=== PATIENT | female | born 1980 | race African-American/Black ===

== ENCOUNTER 2020-06-17 09:44 | Inpatient (IN) | payer BC ==
[~2020-06-17] VITALS: Ht 175.3 cm; Wt 70.3 kg
[2020-06-17] MEDS ORDERED: PERCOCET 5-3251 EACH ORAL (09:55)
[2020-06-17] MEDS ORDERED: ZOFRAN4 M3 ORAL (09:55)
[2020-06-17] MEDS ORDERED: MIRALAX17 G2 ORAL (09:55)
[2020-06-17] MEDS ORDERED: TRAMADOL HCL50 MG ORAL (09:55)
[2020-06-17] MEDS ORDERED: AUGMENTIN 875-1 EAC1 ORAL (09:55)
[2020-06-17] MEDS ORDERED: Omnipaque-300 100ml vial INJ PRN (10:00)
--- NOTE | 2020-06-17 10:15 | Emergency Room Report ---
History of Present Illness General Chief Complaint: Abdominal Pain Source: Patient Present Illness HPI Patient is a 40-year-old female presents for increased abdominal pain and distention. Reports having difficulty with using the bathroom and no bowel movements since procedure. Patient had uterine artery embolization on Sunday. Denies any fever. Had not been having any vomiting. Had been taking magnesium citrate without any improvement. Patient had not been having any fever. Denies any severe pain at this time. Had procedure performed by Dr. 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 COVID-19 Screening: Negative COVID-19 COVID-19 Testing Source: nasal Patient History Past Medical History: see triage record Now: No Reviewed Nursing Documentation: PMH: Agreed; PSxH: Agreed Nursing Documentation-PMH Past Medical History: No History, Except For Hx Gastrointestinal Problems: No - uterine fibroid Review of Systems All Other Systems: negative except mentioned in HPI Physical Exam Vital Signs Date Time Temp Pulse Resp B/P (MAP) Pulse Ox O2 Delivery O2 Flow Rate FiO2 06/17/20 09:47 98.6 81 17 135/85 (102) 99 Room Air Sp02 EP Interpretation: reviewed, normal General Appearance: normal inspection, well appearing, no apparent distress, alert, GCS 15 Head: atraumatic ENT: normal ENT inspection, hearing grossly normal, normal voice Neck: normal inspection, full range of motion, supple, no bony tend Respiratory: normal inspection, lungs clear, normal breath sounds, no respiratory distress, no retraction, no wheezing Cardiovascular #1: regular rate, rhythm, no edema Gastrointestinal: normal inspection, normal bowel sounds, non tender, soft, no guarding, no hernia, other - Large mass to the abdomen consistent uterine fibroid. Genitourinary: no CVA tenderness Musculoskeletal: normal inspection, back normal, normal range of motion Neurologic: alert, motor strength/tone normal, bicycle racer III-XII nml as tested, oriented x3, responsive, speech normal, normal inspection Psychiatric: normal inspection, judgement/insight normal, mood/affect normal Medical Decision Making Diagnostic Impression: Primary Impression: Status post embolization of uterine artery Additional Impressions: Coagulopathy Abdominal pain ER Course Patient presents for abdominal pain. Differential diagnosis include was not limited to fibroids, fecal impaction, bowel obstruction among others. Because of complexity of patient's case laboratory tests and imaging studies were orde red. Patient was discussed with and apparently patient had increased difficulty with having bowel movement. Patient denies any fever suggesting any infection but she had been on Augmentin. Patient had been taking Percocet for pain which may be contributing to the patient's constipation.Patient's laboratory testing showed massive uterus with multiple fibroids. See radiology report for full details. Patient was discussed with Dr. Jeong who agreed with admission. Labs Test 06/17/20 10:00 White Blood Count 7.2 K/UL (4.8-10.8) Red Blood Count 4.38 M/UL (4.20-5.40) Hemoglobin 10.2 G/DL (12.0-16.0) Hematocrit 33.0 % (37.0-47.0) Mean Corpuscular Volume 75 FL (80-99) Mean Corpuscular Hemoglobin 23.3 PG (27.0-31.0) Mean Corpuscular Hemoglobin Concent 30.8 G/DL (32.0-36.0) Red Cell Distribution Width 14.8 % (11.6-14.8) Platelet Count 273 K/UL (150-450) Mean Platelet Volume 7.9 FL (6.5-10.1) Neutrophils (%) (Auto) 81.8 % (45.0-75.0) Lymphocytes (%) (Auto) 8.6 % (20.0-45.0) Monocytes (%) (Auto) 7.7 % (1.0-10.0) Eosinophils (%) (Auto) 0.6 % (0.0-3.0) Basophils (%) (Auto) 1.3 % (0.0-2.0) Prothrombin Time 11.9 SEC (9.30-11.50) Prothromb Time International Ratio 1.1 (0.9-1.1) Activated Partial Thromboplast Time 66 SEC (23-33) Urine Color Pale yellow Urine Appearance Clear Urine pH 7 (4.5-8.0) Urine Specific [place] 1.005 (1.005-1.035) Urine Protein Negative (NEGATIVE) Urine Glucose (UA) Negative (NEGATIVE) Urine Ketones Negative (NEGATIVE) Urine Blood Negative (NEGATIVE) Urine Nitrite Negative (NEGATIVE) Urine Bilirubin Negative (NEGATIVE) Urine Urobilinogen Normal MG/DL (0.0-1.0) Urine Leukocyte Esterase Negative (NEGATIVE) Sodium Level 140 MMOL/L (136-145) Potassium Level 3.7 MMOL/L (3.5-5.1) Chloride Level 102 MMOL/L (98-107) Carbon Dioxide Level 31 MMOL/L (21-32) Anion Gap 7 mmol/L (5-15) Blood Urea Nitrogen 6 mg/dL (7-18) Creatinine 0.7 MG/DL (0.55-1.30) Estimat Glomerular Filtration Rate > 60 mL/min (>60) Glucose Level 101 MG/DL (74-106) Calcium Level 8.9 MG/DL (8.5-10.1) Total Bilirubin 0.4 MG/DL (0.2-1.0) Aspartate Amino Transf (AST/SGOT) 23 U/L (15-37) Alanine Aminotransferase (ALT/SGPT) 18 U/L (12-78) Alkaline Phosphatase 59 U/L (46-116) Total Protein 8.3 G/DL (6.4-8.2) Albumin 3.9 G/DL (3.4-5.0) Globulin 4.4 g/dL Albumin/Globulin Ratio 0.9 (1.0-2.7) Lipase 95 U/L (73-393) Last Vital Signs Date Time Temp Pulse Resp B/P (MAP) Pulse Ox O2 Delivery O2 Flow Rate FiO2 06/17/20 09:47 98.6 81 17 135/85 (102) 99 Room Air Status: improved Disposition: ADMITTED INPATIENT Condition: Stable Raudel Prabhakar MD Jun 17, 2020 10:15
[2020-06-17 10:20] LABS: APPEARANCE,URINE CLEAR; BILIRUBIN, URINE NEGATIVE (NEGATIVE); COLOR,URINE PALE YELLOW; GLUCOSE, URINE (UA) NEGATIVE (NEGATIVE); KETONES,URINE NEGATIVE (NEGATIVE); LEUKOCYTE ESTERASE ,URINE NEGATIVE (NEGATIVE); NITRITE,URINE NEGATIVE (NEGATIVE); PH,URINE 7 (4.5-8.0); PROTEIN,URINE NEGATIVE (NEGATIVE); UROBILINOGEN,URINE NORMAL MG/DL (0.0-1.0)
--- NOTE | 2020-06-17 10:24 | NUR ---
Patient presents to ER for increased abdominal pain and distention. She had a uterine artery embolization procedure by Dr Grimes on Sunday last and have since had difficulty using the bathroom with no bowel movements since then. She reported taking Magnesium citrate without success.
[2020-06-17 10:31] LABS: ANION GAP 7 mmol/L (5-15); BLOOD UREA NITROGEN 6 mg/dL (7-18); CALCIUM 8.9 MG/DL (8.5-10.1); CARBON DIOXIDE 31 MMOL/L (21-32); CHLORIDE 102 MMOL/L (98-107); CREATININE 0.7 MG/DL (0.55-1.30); POTASSIUM 3.7 MMOL/L (3.5-5.1); SODIUM 140 MMOL/L (136-145)
[2020-06-17 10:36] LABS: ALANINE AMINOTRANSFERASE 18 U/L (12-78); ALBUMIN 3.9 G/DL (3.4-5.0); ALBUMIN/GLOBULIN RATIO 0.9 (1.0-2.7); ALKALINE PHOSPHATASE 59 U/L (46-116); ASPARTATE AMINO TRANSFERASE 23 U/L (15-37); BILIRUBIN,TOTAL 0.4 MG/DL (0.2-1.0)
[2020-06-17 10:44] LABS: BASOPHILS % (AUTO) 1.3 % (0.0-2.0); EOSINOPHILS % (AUTO) 0.6 % (0.0-3.0); HEMOGLOBIN 10.2 G/DL (12.0-16.0); LYMPHOCYTES % (AUTO) 8.6 % (20.0-45.0); MEAN CORPUSCULAR VOLUME 75 FL (80-99); MONOCYTES % (AUTO) 7.7 % (1.0-10.0); NEUTROPHILS % (AUTO) 81.8 % (45.0-75.0); PLATELET COUNT 273 K/UL (150-450); RED BLOOD COUNT 4.38 M/UL (4.20-5.40); RED CELL DISTRIBUTION WIDTH 14.8 % (11.6-14.8); WHITE BLOOD COUNT 7.2 K/UL (4.8-10.8)
[2020-06-17 11:19] LABS: INR 1.1 (0.9-1.1)
--- NOTE | 2020-06-17 11:57 | Diagnostic Imaging Report ---
EXAM: CT CT Abdomen Pelvis w/Contrast INDICATION: Reason For Exam: ABD PAIN. COMPARISON: None TECHNIQUE: Axial images were obtained through the abdomen pelvis with intravenous contrast. Sagittal and coronal reformats are generated. All CT scans at this facility are performed using dose modulation techniques as appropriate to a performed exam including the following: automated exposure control with adjustment of the mA and/or kV according to patient size. RADIATION DOSE: CTDIvol: 4.6 mGy DLP: 266.2 mGy-cm Dose information generated by the CT scanner is available in PACS. FINDINGS: The lung bases are clear. The liver and spleen are homogeneous. Gallbladder is without sludge or stone and there is no wall thickening. The pancreas is unremarkable. Adrenals are normal in morphology. There is mild right hydronephrosis. Small bowel loops are nondistended. Increased lucency noted throughout the colon. The appendix is not visualized. The dominant abnormality is huge multilobulated mass or masses extending from the pelvis into the upper abdomen. There is a right-sided dominant cystic component which measures at least 17.2 x 14 x 15 cm. Multiple smaller lobulations, some with apparent enhancement noted in the lower abdomen and pelvis. If this is all one complex mass, then it easily spans over 31 cm. There are some scattered free fluid noted. There is no free air. No pathologic adenopathy demonstrated. Urinary bladder appears unremarkable. Small fatty umbilical hernia noted. IMPRESSION: HUGE MULTILOBULATED, MULTILOCULATED MASS VERSUS MULTIPLE ADJACENT MASSES IDENTIFIED EXTENDING FROM THE PELVIS UP INTO THE UPPER ABDOMEN. THIS IS MOST LIKELY OF OVARIAN ORIGIN. RECOMMEND GYNECOLOGIC OSSIFICATION. MILD RIGHT HYDRONEPHROSIS LIKELY SECONDARY TO DISTAL COMPRESSION.
[2020-06-17] MEDS ORDERED: Ketorolac 30mg Inj IV ONE (12:00)
[2020-06-17] MEDS ORDERED: Ketorolac 30mg Inj ONE (12:00)
--- NOTE | 2020-06-17 12:30 | NUR ---
NURSE NOTES: Pt came up to unit in stable condition and w/all belongings accounted for. Pt A&Ox4, VSS, and in no apparent distress. IV site intact/asymptomatic and skin intact. Will contact MD for admission orders.
[2020-06-17 13:30] VITALS: BP 126/85
[2020-06-17] MEDS ORDERED: Miralax 17gm pkt ORAL PRN (14:00)
[2020-06-17] MEDS ORDERED: Milk of Magnesia 30ml Ud ORAL PRN ×2 (14:00→16:30)
[2020-06-17] MEDS ORDERED: traMADol 50mg tab ORAL PRN (15:30)
[2020-06-17] MEDS: oxyCODONE HCL/Acetaminophen 5/325mg ORAL PRN ×2 (15:51→20:13)
[2020-06-17] MEDS: D5 1/2NS w/KCl 20mEq 1,000 ML IV SCH (15:51)
[2020-06-17 16:00] VITALS: BP 139/93
--- NOTE | 2020-06-17 16:21 | History & Physical ---
History and Physical History & Physicial HISTORY AND PHYSICAL EXAM CC: Abd pain HPI: 40F h/o UF admitted POD2 S/P UFE with abd pain (BLQ crampy) + N no V no FC no CP no SOB. PMH: UF PSH: UFE ALL: NKDA Active Scripts Medications Dose Route/Sig Max Daily Dose Days Date Category Augmentin 875-125 Tablet* (Amoxicillin/Clavulanate Potassium) 1 Each Tablet 1 Tab ORAL TWICE A DAY 06/17/20 Reported Percocet 5-325 Mg Tablet* (Oxycodone/Acetaminophen) 1 Each Tablet 1 Tab ORAL Q4H PRN 06/17/20 Reported Zofran* (Ondansetron HCl) 4 Mg Tablet 4 Mg ORAL Q6H PRN 06/17/20 Reported Ultram* (Tramadol HCl) 50 Mg Tablet 50 Mg ORAL Q6H PRN 06/17/20 Reported Miralax* (Polyethylene Glycol) 17 Gm Powd.pack 17 Gm ORAL DAILY 06/17/20 Reported SHx: No T/E/D use FHx: N/C ROS: Negative other than HPI PE: Last 24 Hour Vital Signs Date Time Temp Pulse Resp B/P (MAP) Pulse Ox O2 Delivery O2 Flow Rate FiO2 06/17/20 12:02 98.6 17 135/85 99 Room Air 06/17/20 09:47 98.6 81 17 135/85 (102) 99 Room Air NAD, AAOX3 NC/AT, OPC c MMM Supple s LAD or JVD CTA RRR S, mild dist, NT, NABS No C/C/E 06/17/20 CT AP: HUGE MULTILOBULATED, MULTILOCULATED MASS VERSUS MULTIPLE ADJACENT MASSES IDENTIFIED EXTENDING FROM THE PELVIS UP INTO THE UPPER ABDOMEN. THIS IS MOST LIKELY OF OVARIAN ORIGIN. RECOMMEND GYNECOLOGIC OSSIFICATION. MILD RIGHT HYDRONEPHROSIS LIKELY SECONDARY TO DISTAL COMPRESSION. Laboratory Tests Test 06/17/20 10:00 White Blood Count 7.2 K/UL (4.8-10.8) Red Blood Count 4.38 M/UL (4.20-5.40) Hemoglobin 10.2 G/DL (12.0-16.0) L Hematocrit 33.0 % (37.0-47.0) L Mean Corpuscular Volume 75 FL (80-99) L Mean Corpuscular Hemoglobin 23.3 PG (27.0-31.0) L Mean Corpuscular Hemoglobin Concent 30.8 G/DL (32.0-36.0) L Red Cell Distribution Width 14.8 % (11.6-14.8) Platelet Count 273 K/UL (150-450) Mean Platelet Volume 7.9 FL (6.5-10.1) Neutrophils (%) (Auto) 81.8 % (45.0-75.0) H Lymphocytes (%) (Auto) 8.6 % (20.0-45.0) L Monocytes (%) (Auto) 7.7 % (1.0-10.0) Eosinophils (%) (Auto) 0.6 % (0.0-3.0) Basophils (%) (Auto) 1.3 % (0.0-2.0) Prothrombin Time 11.9 SEC (9.30-11.50) H Prothromb Time International Ratio 1.1 (0.9-1.1) Activated Partial Thromboplast Time 66 SEC (23-33) H Urine Color Pale yellow Urine Appearance Clear Urine pH 7 (4.5-8.0) Urine Specific [place] 1.005 (1.005-1.035) Urine Protein Negative (NEGATIVE) Urine Glucose (UA) Negative (NEGATIVE) Urine Ketones Negative (NEGATIVE) Urine Blood Negative (NEGATIVE) Urine Nitrite Negative (NEGATIVE) Urine Bilirubin Negative (NEGATIVE) Urine Urobilinogen Normal MG/DL (0.0-1.0) Urine Leukocyte Esterase Negative (NEGATIVE) Sodium Level 140 MMOL/L (136-145) Potassium Level 3.7 MMOL/L (3.5-5.1) Chloride Level 102 MMOL/L (98-107) Carbon Dioxide Level 31 MMOL/L (21-32) Anion Gap 7 mmol/L (5-15) Blood Urea Nitrogen 6 mg/dL (7-18) L Creatinine 0.7 MG/DL (0.55-1.30) Estimat Glomerular Filtration Rate > 60 mL/min (>60) Glucose Level 101 MG/DL (74-106) Calcium Level 8.9 MG/DL (8.5-10.1) Total Bilirubin 0.4 MG/DL (0.2-1.0) Aspartate Amino Transf (AST/SGOT) 23 U/L (15-37) Alanine Aminotransferase (ALT/SGPT) 18 U/L (12-78) Alkaline Phosphatase 59 U/L (46-116) Total Protein 8.3 G/DL (6.4-8.2) H Albumin 3.9 G/DL (3.4-5.0) Globulin 4.4 g/dL Albumin/Globulin Ratio 0.9 (1.0-2.7) L Lipase 95 U/L (73-393) ASSESSMENT/PROBLEM LIST: * UF S/P UFE 06/15/20 (Dr. Farmer) * Post-operative pain * Constipation * Anemia * Mild hydronephrosis 2/2 compression from fibroids PLAN: * Pain control/supportive care * Bowel regimen * IS * OOB * Denise-operative Abx * mIVF * CLD, ADAT * DVT Px: SCD's * SODA DISPENSER eval * Dispo planning: home once pain adequately controlled and bowel function returned * Nathaniel Pena MD Jun 17, 2020 16:21
[2020-06-17] MEDS: Morphine Sulfate 2mg/ml Inj(IV/IM USE ONLY) IVP PRN (17:17)
[2020-06-17] MEDS: Docusate 250mg cap ORAL SCH (17:17)
--- NOTE | 2020-06-17 17:29 | General Surgery Progress Note ---
General Surgery-Progress Note Subjective Day of Surgery: june 15 Procedure Performed uterine fibroid embolization Symptoms: improved, tolerating diet, voiding well, passing flatus, pain decreased Objective Last 24 Hour Vital Signs Date Time Temp Pulse Resp B/P (MAP) Pulse Ox O2 Delivery O2 Flow Rate FiO2 06/17/20 12:02 98.6 17 135/85 99 Room Air 06/17/20 09:47 98.6 81 17 135/85 (102) 99 Room Air Dressing: dry Wound: clean, dry Drains: hemovac Cardiovascular: RSR Respiratory: clear Abdomen: soft, flat, tenderness, present bowel sounds Extremities: no edema, no tenderness, no cyanosis Laboratory Tests Test 06/17/20 10:00 White Blood Count 7.2 K/UL (4.8-10.8) Red Blood Count 4.38 M/UL (4.20-5.40) Hemoglobin 10.2 G/DL (12.0-16.0) L Hematocrit 33.0 % (37.0-47.0) L Mean Corpuscular Volume 75 FL (80-99) L Mean Corpuscular Hemoglobin 23.3 PG (27.0-31.0) L Mean Corpuscular Hemoglobin Concent 30.8 G/DL (32.0-36.0) L Red Cell Distribution Width 14.8 % (11.6-14.8) Platelet Count 273 K/UL (150-450) Mean Platelet Volume 7.9 FL (6.5-10.1) Neutrophils (%) (Auto) 81.8 % (45.0-75.0) H Lymphocytes (%) (Auto) 8.6 % (20.0-45.0) L Monocytes (%) (Auto) 7.7 % (1.0-10.0) Eosinophils (%) (Auto) 0.6 % (0.0-3.0) Basophils (%) (Auto) 1.3 % (0.0-2.0) Prothrombin Time 11.9 SEC (9.30-11.50) H Prothromb Time International Ratio 1.1 (0.9-1.1) Activated Partial Thromboplast Time 66 SEC (23-33) H Urine Color Pale yellow Urine Appearance Clear Urine pH 7 (4.5-8.0) Urine Specific [place] 1.005 (1.005-1.035) Urine Protein Negative (NEGATIVE) Urine Glucose (UA) Negative (NEGATIVE) Urine Ketones Negative (NEGATIVE) Urine Blood Negative (NEGATIVE) Urine Nitrite Negative (NEGATIVE) Urine Bilirubin Negative (NEGATIVE) Urine Urobilinogen Normal MG/DL (0.0-1.0) Urine Leukocyte Esterase Negative (NEGATIVE) Sodium Level 140 MMOL/L (136-145) Potassium Level 3.7 MMOL/L (3.5-5.1) Chloride Level 102 MMOL/L (98-107) Carbon Dioxide Level 31 MMOL/L (21-32) Anion Gap 7 mmol/L (5-15) Blood Urea Nitrogen 6 mg/dL (7-18) L Creatinine 0.7 MG/DL (0.55-1.30) Estimat Glomerular Filtration Rate > 60 mL/min (>60) Glucose Level 101 MG/DL (74-106) Calcium Level 8.9 MG/DL (8.5-10.1) Total Bilirubin 0.4 MG/DL (0.2-1.0) Aspartate Amino Transf (AST/SGOT) 23 U/L (15-37) Alanine Aminotransferase (ALT/SGPT) 18 U/L (12-78) Alkaline Phosphatase 59 U/L (46-116) Total Protein 8.3 G/DL (6.4-8.2) H Albumin 3.9 G/DL (3.4-5.0) Globulin 4.4 g/dL Albumin/Globulin Ratio 0.9 (1.0-2.7) L Lipase 95 U/L (73-393) Imaging no acute findings, much stool in colon Plan Additional Comments pain control, laxatives, iv iron. Álvaro Farmer MD Jun 17, 2020 17:29
--- NOTE | 2020-06-17 18:30 | NUR ---
NURSE NOTES: Performed tap water enema; pt tolerated well. Informed pt to notify me once she has BM; pt verbalized understanding. Will continue to monitor.
--- NOTE | 2020-06-17 19:10 | NUR ---
NURSE NOTES: Received report from DAPHNIE Awan. Pt is in bed A&Ox4, call light within reach, bed locked and in lowest position. Pt is having episodes of pain being treated with pain medication. IVF infusing well. Will continue to monitor.
[2020-06-17 20:00] VITALS: BP 131/73
--- NOTE | 2020-06-17 20:00 | NUR ---
NURSE HAND-OFF: Important Events on Shift: Pt received tap water enema at end of shift; pt yet to have BM. Patient Status: Stable Diet: Clear liquids Pending Orders: None Pending Results/Labs: None Pending MD notification: None Latest Vital Signs: Temperature 98.8 , Pulse 77 , B/P 139 /93 , Respiratory Rate 19 , O2 SAT 100 , Room Air, O2 Flow Rate . Vital Sign Comment: Stable Latest Gilman Fall Score: 35 Fall Risk: Medium Risk Safety Measures: Call light Within Reach, Bed Alarm , Side Rails Side Rails x2, Bed position Low and Locked. Fall Precautions: Report given to
[2020-06-17] MEDS: Iron Sucrose 100 MG in NS 55 ML IVPB SCH (20:12)
[2020-06-17] MEDS: Augmentin 875mg Tab ORAL SCH (20:13)
[2020-06-18] VITALS: BP 123/84
[2020-06-18] MEDS: D5 1/2NS w/KCl 20mEq 1,000 ML IV SCH ×3 (00:07→21:00)
[2020-06-18] MEDS: Morphine Sulfate 2mg/ml Inj(IV/IM USE ONLY) IVP PRN (00:08)
[2020-06-18] MEDS: oxyCODONE HCL/Acetaminophen 5/325mg ORAL PRN ×5 (02:10→20:19)
[2020-06-18 04:00] VITALS: BP 134/75
[2020-06-18 07:10] LABS: BASOPHILS % (AUTO) 0.5 % (0.0-2.0); EOSINOPHILS % (AUTO) 0.3 % (0.0-3.0); HEMATOCRIT 32.9 % (37.0-47.0); HEMOGLOBIN 9.6 G/DL (12.0-16.0); LYMPHOCYTES % (AUTO) 7.9 % (20.0-45.0); MEAN CORPUSCULAR VOLUME 77 FL (80-99); MONOCYTES % (AUTO) 9.9 % (1.0-10.0); NEUTROPHILS % (AUTO) 81.4 % (45.0-75.0); PLATELET COUNT 233 K/UL (150-450); RED BLOOD COUNT 4.26 M/UL (4.20-5.40); RED CELL DISTRIBUTION WIDTH 13.4 % (11.6-14.8); WHITE BLOOD COUNT 7.3 K/UL (4.8-10.8)
--- NOTE | 2020-06-18 07:10 | NUR ---
NURSE HAND-OFF: Important Events on Shift: Pain management, prune juice given still no BM Patient Status: Calm Diet: clear liquid Pending Orders: Pending Results/Labs: Pending MD notification: Latest Vital Signs: Temperature 99.1 , Pulse 89 , B/P 134 /75 , Respiratory Rate 18 , O2 SAT 99 , Room Air, O2 Flow Rate . Vital Sign Comment: VSS Latest Gilman Fall Score: 35 Fall Risk: Medium Risk Safety Measures: Call light Within Reach, Bed Alarm , Side Rails Side Rails x2, Bed position Low and Locked. Fall Precautions: Yellow Socks Patient Fall Education Report given to DAPHNIE Momin.
--- NOTE | 2020-06-18 07:22 | NUR ---
NURSE NOTES: Handoff received from Serjio ELLER. Patient is awake and alert, no signs of acute distress noted, breathing is even and unlabored on room air. Left AC 20g is intact and running IVF as ordered. Patient is requesting heat pad for abdominal pain and reporting no bowel movement for 3 days. Bed is low and locked, side rails up x2, call light is within reach. Will continue to monitor.
[2020-06-18 07:24] LABS: ANION GAP 5 mmol/L (5-15); BLOOD UREA NITROGEN 4 mg/dL (7-18); CALCIUM 8.4 MG/DL (8.5-10.1); CARBON DIOXIDE 29 MMOL/L (21-32); CHLORIDE 102 MMOL/L (98-107); CREATININE 0.7 MG/DL (0.55-1.30); SODIUM 136 MMOL/L (136-145)
[2020-06-18 08:00] VITALS: BP 136/86
[2020-06-18] MEDS: Augmentin 875mg Tab ORAL SCH ×2 (08:36→20:19)
[2020-06-18] MEDS: Docusate 250mg cap ORAL SCH ×2 (08:38→17:36)
--- NOTE | 2020-06-18 09:44 | NUR ---
CASE MANAGEMENT:REVIEW 40 YR OLD FEMALE PRESENTED TO ER CC: ABDOMINAL PAIN PMH: S/P UTERINE ARTERY EMBOLIZATION ON 06/15/20 SI: ABDOMINAL PAIN 98.6 81 17 135/85 99% ON RA H/H-10.2/33.0 PT+11.9 INR=1.1 APTT+66 IS: 1L NS BOLUS IV TORADOL CT ABD/PELVIS : TO MED/SURG PLAN: IV MORPHINE Q4HRS PRN IVF@100/HR
[2020-06-18] MEDS ORDERED: Magnesium Citrate Liq Btl ORAL SCH (11:00)
--- NOTE | 2020-06-18 11:00 | NUR ---
NURSE NOTES: Mag citrate not available in pyxis, RN called pharmacy for restock
[2020-06-18 12:00] VITALS: BP 130/85
--- NOTE | 2020-06-18 12:13 | Pulmonology Progress Note ---
Subjective Allergies: Coded Allergies: No Known Allergies (Unverified , 06/17/20) Subjective AFVSS on RA Pain well controlled no flatus no BM OOB no FC no CP no SOB Objective Last 24 Hour Vital Signs Date Time Temp Pulse Resp B/P (MAP) Pulse Ox O2 Delivery O2 Flow Rate FiO2 06/18/20 10:43 99.1 06/18/20 09:00 Room Air 06/18/20 08:00 99.1 89 18 136/86 (103) 99 06/18/20 04:00 99.1 89 18 134/75 (94) 99 06/18/20 00:00 98.9 80 18 123/84 (97) 98 06/17/20 21:00 Room Air 06/17/20 20:18 Room Air 06/17/20 20:00 99.5 77 18 131/73 (92) 99 06/17/20 16:00 98.8 77 19 139/93 (108) 100 06/17/20 13:30 99.8 78 16 126/85 (99) 99 Intake and Output 06/17/20 06/18/20 19:00 07:00 Intake Total 2108 ml Balance 2108 ml Intake Oral 904 ml Tube Feeding 904 ml Other 300 ml # Voids 2 General Appearance: WD/WN, no acute distress HEENT: normocephalic, atraumatic, anicteric, mucous membranes moist Respiratory: chest wall non-tender, lungs clear, normal breath sounds, no respiratory distress, no accessory muscle use Cardiovascular: normal peripheral pulses, normal rate, regular rhythm Abdomen: normal bowel sounds, soft, non tender, no organomegaly, non distended Extremities: no cyanosis, no clubbing, no edema Laboratory Tests 06/18/20 05:20: White Blood Count 7.3, Red Blood Count 4.26, Hemoglobin 9.6L, Hematocrit 32.9L, Mean Corpuscular Volume 77L, Mean Corpuscular Hemoglobin 22.5L, Mean Corpuscular Hemoglobin Concent 29.1L, Red Cell Distribution Width 13.4, Platelet Count 233, Mean Platelet Volume 7.8, Neutrophils (%) (Auto) 81.4H, Lymphocytes (%) (Auto) 7.9L, Monocytes (%) (Auto) 9.9, Eosinophils (%) (Auto) 0.3, Basophils (%) (Auto) 0.5, Sodium Level 136, Potassium Level 4.0, Chloride Level 102, Carbon Dioxide Level 29, Anion Gap 5, Blood Urea Nitrogen 4L, Creatinine 0.7, Estimat Glomerular Filtration Rate > 60, Glucose Level 103, Calcium Level 8.4L Current Medications Medications (Trade) Dose Ordered Sig/Kye Route PRN Reason Start Time Stop Time Status Last Admin Dose Admin Amoxicillin/ Clavulanate Potassium (Augmentin) 875 mg EVERY 12 HOURS ORAL 06/17/20 21:00 06/24/20 20:59 06/18/20 08:36 Dextrose/ Electrolytes 1,000 ml @ 100 mls/hr Q10H IV 06/17/20 15:00 07/17/20 14:59 06/18/20 00:07 Docusate Sodium (Colace) 250 mg BID ORAL 06/17/20 18:00 07/17/20 17:59 06/18/20 08:38 Iohexol (OMNIPAQUE-300 100ml) 100 ml NOW PRN INJ Radiology Procedure 06/17/20 10:00 06/19/20 09:59 Iron Sucrose 100 mg/Sodium Chloride 60 ml @ 240 mls/hr BEDTIME IVPB 06/17/20 21:00 06/21/20 21:14 06/17/20 20:12 Magnesium Hydroxide (Mom) 30 ml Q12H PRN ORAL Constipation 06/17/20 16:30 07/17/20 16:29 Morphine Sulfate (Morphine Sulfate) 1 mg Q4H PRN IVP For breakthrough pain 06/17/20 16:30 06/24/20 16:29 06/18/20 00:08 Ondansetron HCl (Zofran) 4 mg Q6H PRN ORAL Nausea & Vomiting 06/17/20 15:30 07/17/20 15:29 06/18/20 11:08 Oxycodone/ Acetaminophen (Percocet 5-325) 1 tab Q4H PRN ORAL Severe Pain (Pain Scale 7-10) 06/17/20 15:30 06/24/20 15:29 06/18/20 11:26 Polyethylene Glycol (Miralax) 17 gm DAILY PRN ORAL Constipation 06/17/20 14:00 07/17/20 13:59 Tramadol HCl (Ultram) 50 mg Q6H PRN ORAL Moderate Pain (Pain Scale 4-6) 06/17/20 15:30 06/24/20 15:29 06/18/20 10:13 Assessment/Plan Problems: (1) UTERINE ARTERY EMBOLIZATION (2) Abdominal pain Assessment/Plan ASSESSMENT/PROBLEM LIST: * UF S/P UFE 06/15/20 (Dr. Farmer) * Post-operative pain * Constipation * Anemia * Mild hydronephrosis 2/2 compression from fibroids PLAN: * Pain control/supportive care * Bowel regimen * IS * OOB * Denise-operative Abx * mIVF * Advance diet per PRODUCT BUILDER * DVT Px: SCD's * PRODUCT BUILDER recs * Dispo planning: home once pain adequately controlled and bowel function returned * Nathaniel Pena MD Jun 18, 2020 12:13
[2020-06-18] MEDS ORDERED: Fleet's Enema 133ml RECTAL SCH (13:00)
[2020-06-18 16:00] VITALS: BP 129/83
--- NOTE | 2020-06-18 16:53 | NUR ---
INSURANCE CLINICALS/REVIEW FAXED TO [facility] (Formerly [facility]) FX [phone]
--- NOTE | 2020-06-18 18:45 | General Surgery Progress Note ---
General Surgery-Progress Note Subjective Procedure Performed uterine fibroid embolization Symptoms: improved, tolerating diet, voiding well, BM Objective Last 24 Hour Vital Signs Date Time Temp Pulse Resp B/P (MAP) Pulse Ox O2 Delivery O2 Flow Rate FiO2 06/18/20 16:00 98.2 93 20 129/83 (98) 100 06/18/20 15:46 99.1 06/18/20 12:00 99.9 88 18 130/85 (100) 100 06/18/20 11:56 99.1 06/18/20 10:43 99.1 06/18/20 09:00 Room Air 06/18/20 08:00 99.1 89 18 136/86 (103) 99 06/18/20 04:00 99.1 89 18 134/75 (94) 99 06/18/20 00:00 98.9 80 18 123/84 (97) 98 06/17/20 21:00 Room Air 06/17/20 20:18 Room Air 06/17/20 20:00 99.5 77 18 131/73 (92) 99 I&O Intake and Output 06/17/20 06/18/20 19:00 07:00 Intake Total 2108 ml Balance 2108 ml Intake Oral 904 ml Tube Feeding 904 ml Other 300 ml # Voids 2 Dressing: dry Wound: clean Drains: none Cardiovascular: RSR Respiratory: clear Abdomen: soft, flat, present bowel sounds Extremities: no edema, no tenderness, no cyanosis Laboratory Tests Test 06/18/20 05:20 White Blood Count 7.3 K/UL (4.8-10.8) Red Blood Count 4.26 M/UL (4.20-5.40) Hemoglobin 9.6 G/DL (12.0-16.0) L Hematocrit 32.9 % (37.0-47.0) L Mean Corpuscular Volume 77 FL (80-99) L Mean Corpuscular Hemoglobin 22.5 PG (27.0-31.0) L Mean Corpuscular Hemoglobin Concent 29.1 G/DL (32.0-36.0) L Red Cell Distribution Width 13.4 % (11.6-14.8) Platelet Count 233 K/UL (150-450) Mean Platelet Volume 7.8 FL (6.5-10.1) Neutrophils (%) (Auto) 81.4 % (45.0-75.0) H Lymphocytes (%) (Auto) 7.9 % (20.0-45.0) L Monocytes (%) (Auto) 9.9 % (1.0-10.0) Eosinophils (%) (Auto) 0.3 % (0.0-3.0) Basophils (%) (Auto) 0.5 % (0.0-2.0) Sodium Level 136 MMOL/L (136-145) Potassium Level 4.0 MMOL/L (3.5-5.1) Chloride Level 102 MMOL/L (98-107) Carbon Dioxide Level 29 MMOL/L (21-32) Anion Gap 5 mmol/L (5-15) Blood Urea Nitrogen 4 mg/dL (7-18) L Creatinine 0.7 MG/DL (0.55-1.30) Estimat Glomerular Filtration Rate > 60 mL/min (>60) Glucose Level 103 MG/DL (74-106) Calcium Level 8.4 MG/DL (8.5-10.1) L Plan Additional Comments bowel regimen in progress. pain controlled orally. Álvaro Farmer MD Jun 18, 2020 18:45
--- NOTE | 2020-06-18 18:45 | NUR ---
NURSE HAND-OFF: Important Events on Shift:[mag citrate, fleets enema, bowel movement] Patient Status: stable Diet: full liquid Pending Orders: Pending Results/Labs: Pending MD notification: Latest Vital Signs: Temperature 98.2 , Pulse 93 , B/P 129 /83 , Respiratory Rate 20 , O2 SAT 100 , Room Air, O2 Flow Rate . Vital Sign Comment: stable Latest Gilman Fall Score: 35 Fall Risk: Medium Risk Safety Measures: Call light Within Reach, Bed Alarm , Side Rails Side Rails x2, Bed position Low and Locked. Fall Precautions: Yellow Socks Patient Fall Education Report given to .
[2020-06-18 19:40] LABS: HEMATOCRIT 33.3 % (37.0-47.0); HEMOGLOBIN 9.9 G/DL (12.0-16.0); MEAN CORPUSCULAR VOLUME 77 FL (80-99); PLATELET COUNT 250 K/UL (150-450); RED BLOOD COUNT 4.32 M/UL (4.20-5.40); RED CELL DISTRIBUTION WIDTH 14.1 % (11.6-14.8); WHITE BLOOD COUNT 9.4 K/UL (4.8-10.8)
[2020-06-18 19:57] LABS: ANION GAP 8 mmol/L (5-15); BLOOD UREA NITROGEN 3 mg/dL (7-18); CALCIUM 8.7 MG/DL (8.5-10.1); CARBON DIOXIDE 28 MMOL/L (21-32); CHLORIDE 102 MMOL/L (98-107); CREATININE 0.7 MG/DL (0.55-1.30); POTASSIUM 4.1 MMOL/L (3.5-5.1); SODIUM 138 MMOL/L (136-145)
[2020-06-18 20:02] LABS: ALANINE AMINOTRANSFERASE 22 U/L (12-78); ALBUMIN 3.1 G/DL (3.4-5.0); ALBUMIN/GLOBULIN RATIO 0.7 (1.0-2.7); ALKALINE PHOSPHATASE 68 U/L (46-116); ASPARTATE AMINO TRANSFERASE 32 U/L (15-37); BILIRUBIN,TOTAL 0.5 MG/DL (0.2-1.0)
[2020-06-18 20:05] VITALS: BP 136/83
[2020-06-18] MEDS: Iron Sucrose 100 MG in NS 55 ML IVPB SCH (20:19)
[2020-06-19] VITALS: BP 131/90
[2020-06-19] MEDS: oxyCODONE HCL/Acetaminophen 5/325mg ORAL PRN ×6 (00:07→21:41)
[2020-06-19] MEDS: D5 1/2NS w/KCl 20mEq 1,000 ML IV SCH (00:08)
[2020-06-19 04:00] VITALS: BP 117/81
--- NOTE | 2020-06-19 06:16 | NUR ---
NURSE HAND-OFF: Important Events on Shift:[] Patient Status: Diet: [] Pending Orders: [] Pending Results/Labs:[] Pending MD notification:[] Latest Vital Signs: Temperature 98.1 , Pulse 106 , B/P 117 /81 , Respiratory Rate 20 , O2 SAT 99 , Room Air, O2 Flow Rate . Vital Sign Comment: [] Latest Gilman Fall Score: 35 Fall Risk: Medium Risk Safety Measures: Call light Within Reach, Bed Alarm , Side Rails Side Rails x2, Bed position Low and Locked. Fall Precautions: Yellow Socks Patient Fall Education Report given to [].
--- NOTE | 2020-06-19 06:17 | NUR ---
NURSE HAND-OFF: Important Events on Shift: No significant events noted this shift except for pain management. patient requesting that the percocet ordered every 4 hours will be given on time. education done on pain management. Patient Status: stable at this time Diet: see orders Pending Orders: see chart Pending Results/Labs: see chart Pending MD notification: see chart Latest Vital Signs: Temperature 98.1 , Pulse 106 , B/P 117 /81 , Respiratory Rate 20 , O2 SAT 99 , Room Air, O2 Flow Rate . Vital Sign Comment: stable, afebrile Latest Gilman Fall Score: 35 Fall Risk: Medium Risk Safety Measures: Call light Within Reach, Bed Alarm , Side Rails Side Rails x2, Bed position Low and Locked. Fall Precautions: Yellow Socks Patient Fall Education Report will be given to Khurram Ocampo RN.
[2020-06-19 06:31] LABS: HEMATOCRIT 33.2 % (37.0-47.0); HEMOGLOBIN 9.9 G/DL (12.0-16.0); MEAN CORPUSCULAR VOLUME 77 FL (80-99); PLATELET COUNT 263 K/UL (150-450); RED BLOOD COUNT 4.32 M/UL (4.20-5.40); RED CELL DISTRIBUTION WIDTH 12.9 % (11.6-14.8); WHITE BLOOD COUNT 9.4 K/UL (4.8-10.8)
[2020-06-19 07:04] LABS: ANION GAP 6 mmol/L (5-15); BLOOD UREA NITROGEN 3 mg/dL (7-18); CALCIUM 8.8 MG/DL (8.5-10.1); CARBON DIOXIDE 30 MMOL/L (21-32); CHLORIDE 102 MMOL/L (98-107); CREATININE 0.7 MG/DL (0.55-1.30); POTASSIUM 4.1 MMOL/L (3.5-5.1); SODIUM 138 MMOL/L (136-145)
--- NOTE | 2020-06-19 07:30 | NUR ---
NURSE NOTES: Received pt from DAPHNIE Stern. pt was resting. c/o pain on abd 10/07. will give pain med. call light w/in reach
[2020-06-19 08:00] VITALS: BP 138/75
[2020-06-19] MEDS: Docusate 250mg cap ORAL SCH (09:07)
[2020-06-19] MEDS: Augmentin 875mg Tab ORAL SCH ×2 (09:07→20:22)
--- NOTE | 2020-06-19 09:49 | Pulmonology Progress Note ---
Subjective Interval Events: Took mag citrate today, had a BM. Feeling more abdominal discomfort. Constitutional: Reports: no symptoms HEENT: Repors: no symptoms Respiratory: Reports: no symptoms Cardiovascular: Reports: no symptoms Gastrointestinal/Abdominal: Reports: bloating Genitourinary: Reports: other - Discomfort from fibroids Neurologic: Reports: no symptoms Psychiatric: Reports: no symptoms Skin: Reports: no symptoms Endocrine: Reports: no symptoms Hematologic: Reports: no symptoms Musculoskeletal: Reports: no symptoms Allergies: Coded Allergies: No Known Allergies (Unverified , 06/17/20) Objective Last 24 Hour Vital Signs Date Time Temp Pulse Resp B/P (MAP) Pulse Ox O2 Delivery O2 Flow Rate FiO2 06/19/20 08:00 Room Air 06/19/20 08:00 97.7 106 19 138/75 (96) 99 06/19/20 04:00 98.1 106 20 117/81 (93) 99 06/19/20 00:00 97.9 100 20 131/90 (104) 98 06/18/20 21:00 Room Air 06/18/20 20:05 99.3 100 18 136/83 (100) 100 06/18/20 16:00 98.2 93 20 129/83 (98) 100 06/18/20 15:46 99.1 06/18/20 12:00 99.9 88 18 130/85 (100) 100 06/18/20 11:56 99.1 06/18/20 10:43 99.1 Intake and Output 06/18/20 06/19/20 19:00 07:00 Intake Total 1060 ml 1640 ml Balance 1060 ml 1640 ml Intake Oral 960 ml 300 ml IV Total 100 ml 1340 ml # Voids 3 3 General Appearance: WD/WN, no acute distress HEENT: normocephalic, atraumatic, anicteric, mucous membranes moist Respiratory: chest wall non-tender, lungs clear, normal breath sounds, no respiratory distress, no accessory muscle use Cardiovascular: normal peripheral pulses, normal rate, regular rhythm Abdomen: normal bowel sounds, soft, non tender, no organomegaly, non distended, other - distended abdomen with firm areas R lateral and lower abdomen at site of fibroids Extremities: no cyanosis, no clubbing, no edema Laboratory Tests 06/18/20 19:30: White Blood Count 9.4, Red Blood Count 4.32, Hemoglobin 9.9L, Hematocrit 33.3L, Mean Corpuscular Volume 77L, Mean Corpuscular Hemoglobin 22.9L, Mean Corpuscular Hemoglobin Concent 29.7L, Red Cell Distribution Width 14.1, Platelet Count 250, Mean Platelet Volume 7.5, Neutrophils (%) (Auto) , Lymphocytes (%) (Auto) , Monocytes (%) (Auto) , Eosinophils (%) (Auto) , Basophils (%) (Auto) , Differential Total Cells Counted 100, Neutrophils % (Manual) 86H, Lymphocytes % (Manual) 11L, Monocytes % (Manual) 3, Eosinophils % (Manual) 0, Basophils % (Manual) 0, Band Neutrophils 0, Platelet Estimate Adequate, Platelet Morphology , Hypochromasia 1+, Microcytosis 1+, Sodium Level 138, Potassium Level 4.1, Chloride Level 102, Carbon Dioxide Level 28, Anion Gap 8, Blood Urea Nitrogen 3L , Creatinine 0.7, Estimat Glomerular Filtration Rate > 60, Glucose Level 138H, Calcium Level 8.7, Total Bilirubin 0.5, Aspartate Amino Transf (AST/SGOT) 32, Alanine Aminotransferase (ALT/SGPT) 22, Alkaline Phosphatase 68, Total Protein 7.7, Albumin 3.1L, Globulin 4.6, Albumin/Globulin Ratio 0.7L 06/19/20 05:50: White Blood Count 9.4, Red Blood Count 4.32, Hemoglobin 9.9L, Hematocrit 33.2L, Mean Corpuscular Volume 77L, Mean Corpuscular Hemoglobin 22.9L, Mean Corpuscular Hemoglobin Concent 29.8L, Red Cell Distribution Width 12.9, Platelet Count 263, Mean Platelet Volume 8.0, Neutrophils (%) (Auto) , Lymphocytes (%) (Auto) , Monocytes (%) (Auto) , Eosinophils (%) (Auto) , Basophils (%) (Auto) , Sodium Level 138, Potassium Level 4.1, Chloride Level 102, Carbon Dioxide Level 30, Anion Gap 6, Blood Urea Nitrogen 3L, Creatinine 0.7, Estimat Glomerular Filtration Rate > 60, Glucose Level 101, Calcium Level 8.8 Current Medications Medications (Trade) Dose Ordered Sig/Kye Route PRN Reason Start Time Stop Time Status Last Admin Dose Admin Amoxicillin/ Clavulanate Potassium (Augmentin) 875 mg EVERY 12 HOURS ORAL 06/17/20 21:00 06/24/20 20:59 06/19/20 09:07 Dextrose/ Electrolytes 1,000 ml @ 100 mls/hr Q10H IV 06/17/20 15:00 07/17/20 14:59 06/19/20 00:08 Docusate Sodium (Colace) 250 mg BID ORAL 06/17/20 18:00 07/17/20 17:59 06/19/20 09:07 Iohexol (OMNIPAQUE-300 100ml) 100 ml NOW PRN INJ Radiology Procedure 06/17/20 10:00 06/19/20 09:59 Iron Sucrose 100 mg/Sodium Chloride 60 ml @ 240 mls/hr BEDTIME IVPB 06/17/20 21:00 06/21/20 21:14 06/18/20 20:19 Magnesium Hydroxide (Mom) 30 ml Q12H PRN ORAL Constipation 06/17/20 16:30 07/17/20 16:29 Morphine Sulfate (Morphine Sulfate) 1 mg Q4H PRN IVP For breakthrough pain 06/17/20 16:30 06/24/20 16:29 06/18/20 00:08 Ondansetron HCl (Zofran) 4 mg Q6H PRN ORAL Nausea & Vomiting 06/17/20 15:30 07/17/20 15:29 06/18/20 11:08 Oxycodone/ Acetaminophen (Percocet 5-325) 1 tab Q4H PRN ORAL Severe Pain (Pain Scale 7-10) 06/17/20 15:30 06/24/20 15:29 06/19/20 07:46 Polyethylene Glycol (Miralax) 17 gm DAILY PRN ORAL Constipation 06/17/20 14:00 07/17/20 13:59 Tramadol HCl (Ultram) 50 mg Q6H PRN ORAL Moderate Pain (Pain Scale 4-6) 06/17/20 15:30 06/24/20 15:29 06/18/20 10:13 Assessment/Plan Assessment/Plan ASSESSMENT/PROBLEM LIST: * UF S/P UFE 06/15/20 (Dr. Farmer) * Post-operative pain * Constipation * Anemia * Mild hydronephrosis 2/2 compression from fibroids PLAN: * Pain control/supportive care * Bowel regimen * GI consult * IS * OOB * Denise-operative Abx * mIVF * Advance diet per MANAGER BANK * DVT Px: SCD's * MANAGER BANK recs * Dispo planning: home once pain adequately controlled and bowel function returned * FC Ian Mckeon MD Jun 19, 2020 09:49
--- NOTE | 2020-06-19 10:51 | General Progress Note ---
Subjective ROS Limited/Unobtainable: Yes Allergies: Coded Allergies: No Known Allergies (Unverified , 06/17/20) Objective Last 24 Hour Vital Signs Date Time Temp Pulse Resp B/P (MAP) Pulse Ox O2 Delivery O2 Flow Rate FiO2 06/19/20 08:00 Room Air 06/19/20 08:00 97.7 106 19 138/75 (96) 99 06/19/20 04:00 98.1 106 20 117/81 (93) 99 06/19/20 00:00 97.9 100 20 131/90 (104) 98 06/18/20 21:00 Room Air 06/18/20 20:05 99.3 100 18 136/83 (100) 100 06/18/20 16:00 98.2 93 20 129/83 (98) 100 06/18/20 15:46 99.1 06/18/20 12:00 99.9 88 18 130/85 (100) 100 06/18/20 11:56 99.1 Intake and Output 06/18/20 06/19/20 19:00 07:00 Intake Total 1060 ml 1640 ml Balance 1060 ml 1640 ml Intake Oral 960 ml 300 ml IV Total 100 ml 1340 ml # Voids 3 3 Laboratory Tests 06/18/20 19:30: White Blood Count 9.4, Red Blood Count 4.32, Hemoglobin 9.9L, Hematocrit 33.3L, Mean Corpuscular Volume 77L, Mean Corpuscular Hemoglobin 22.9L, Mean Corpuscular Hemoglobin Concent 29.7L, Red Cell Distribution Width 14.1, Platelet Count 250, Mean Platelet Volume 7.5, Neutrophils (%) (Auto) , Lymphocytes (%) (Auto) , Monocytes (%) (Auto) , Eosinophils (%) (Auto) , Basophils (%) (Auto) , Differential Total Cells Counted 100, Neutrophils % (Manual) 86H, Lymphocytes % (Manual) 11L, Monocytes % (Manual) 3, Eosinophils % (Manual) 0, Basophils % (Manual) 0, Band Neutrophils 0, Platelet Estimate Adequate, Platelet Morphology , Hypochromasia 1+, Microcytosis 1+, Sodium Level 138, Potassium Level 4.1, Chloride Level 102, Carbon Dioxide Level 28, Anion Gap 8, Blood Urea Nitrogen 3L , Creatinine 0.7, Estimat Glomerular Filtration Rate > 60, Glucose Level 138H, Calcium Level 8.7, Total Bilirubin 0.5, Aspartate Amino Transf (AST/SGOT) 32, Alanine Aminotransferase (ALT/SGPT) 22, Alkaline Phosphatase 68, Total Protein 7.7, Albumin 3.1L, Globulin 4.6, Albumin/Globulin Ratio 0.7L 06/19/20 05:50: White Blood Count 9.4, Red Blood Count 4.32, Hemoglobin 9.9L, Hematocrit 33.2L, Mean Corpuscular Volume 77L, Mean Corpuscular Hemoglobin 22.9L, Mean Corpuscular Hemoglobin Concent 29.8L, Red Cell Distribution Width 12.9, Platelet Count 263, Mean Platelet Volume 8.0, Neutrophils (%) (Auto) , Lymphocytes (%) (Auto) , Monocytes (%) (Auto) , Eosinophils (%) (Auto) , Basophils (%) (Auto) , Sodium Level 138, Potassium Level 4.1, Chloride Level 102, Carbon Dioxide Level 30, Anion Gap 6, Blood Urea Nitrogen 3L, Creatinine 0.7, Estimat Glomerular Filtration Rate > 60, Glucose Level 101, Calcium Level 8.8 Height (Feet): 5 Height (Inches): 9.00 Weight (Pounds): 155 General Appearance: no apparent distress EENT: normal ENT inspection Neck: supple Cardiovascular: normal rate Respiratory/Chest: decreased breath sounds Abdomen: hypoactive bowel sounds, distended, tender Extremities: non-tender Assessment/Plan Problem List: (1) Coagulopathy ICD Codes: D68.9 - Coagulation defect, unspecified SNOMED: 76746346 (2) Abdominal pain ICD Codes: R10.9 - Unspecified abdominal pain SNOMED: 60674538 (3) UTERINE ARTERY EMBOLIZATION (4) Status post embolization of uterine artery ICD Codes: Z98.890 - Other specified postprocedural states SNOMED: 497868367 Assessment/Plan: bowel regimen CT reviewed D/W BROTHEL KEEPER KUB in am Carter Kumar MD Jun 19, 2020 10:51
--- NOTE | 2020-06-19 11:01 | General Surgery Progress Note ---
General Surgery-Progress Note Subjective Procedure Performed uterine fibroid embolization Symptoms: tolerating diet, BM, pain decreased Objective Last 24 Hour Vital Signs Date Time Temp Pulse Resp B/P (MAP) Pulse Ox O2 Delivery O2 Flow Rate FiO2 06/19/20 08:00 Room Air 06/19/20 08:00 97.7 106 19 138/75 (96) 99 06/19/20 04:00 98.1 106 20 117/81 (93) 99 06/19/20 00:00 97.9 100 20 131/90 (104) 98 06/18/20 21:00 Room Air 06/18/20 20:05 99.3 100 18 136/83 (100) 100 06/18/20 16:00 98.2 93 20 129/83 (98) 100 06/18/20 15:46 99.1 06/18/20 12:00 99.9 88 18 130/85 (100) 100 06/18/20 11:56 99.1 I&O Intake and Output 06/18/20 06/19/20 19:00 07:00 Intake Total 1060 ml 1640 ml Balance 1060 ml 1640 ml Intake Oral 960 ml 300 ml IV Total 100 ml 1340 ml # Voids 3 3 Dressing: dry Wound: clean Drains: none Cardiovascular: RSR Abdomen: soft, flat, tenderness, present bowel sounds Laboratory Tests Test 06/18/20 19:30 06/19/20 05:50 White Blood Count 9.4 K/UL (4.8-10.8) 9.4 K/UL (4.8-10.8) Red Blood Count 4.32 M/UL (4.20-5.40) 4.32 M/UL (4.20-5.40) Hemoglobin 9.9 G/DL (12.0-16.0) L 9.9 G/DL (12.0-16.0) L Hematocrit 33.3 % (37.0-47.0) L 33.2 % (37.0-47.0) L Mean Corpuscular Volume 77 FL (80-99) L 77 FL (80-99) L Mean Corpuscular Hemoglobin 22.9 PG (27.0-31.0) L 22.9 PG (27.0-31.0) L Mean Corpuscular Hemoglobin Concent 29.7 G/DL (32.0-36.0) L 29.8 G/DL (32.0-36.0) L Red Cell Distribution Width 14.1 % (11.6-14.8) 12.9 % (11.6-14.8) Platelet Count 250 K/UL (150-450) 263 K/UL (150-450) Mean Platelet Volume 7.5 FL (6.5-10.1) 8.0 FL (6.5-10.1) Neutrophils (%) (Auto) % (45.0-75.0) % (45.0-75.0) Lymphocytes (%) (Auto) % (20.0-45.0) % (20.0-45.0) Monocytes (%) (Auto) % (1.0-10.0) % (1.0-10.0) Eosinophils (%) (Auto) % (0.0-3.0) % (0.0-3.0) Basophils (%) (Auto) % (0.0-2.0) % (0.0-2.0) Differential Total Cells Counted 100 Neutrophils % (Manual) 86 % (45-75) H Lymphocytes % (Manual) 11 % (20-45) L Monocytes % (Manual) 3 % (1-10) Eosinophils % (Manual) 0 % (0-3) Basophils % (Manual) 0 % (0-2) Band Neutrophils 0 % (0-8) Platelet Estimate Adequate Platelet Morphology Hypochromasia 1+ Microcytosis 1+ Sodium Level 138 MMOL/L (136-145) 138 MMOL/L (136-145) Potassium Level 4.1 MMOL/L (3.5-5.1) 4.1 MMOL/L (3.5-5.1) Chloride Level 102 MMOL/L (98-107) 102 MMOL/L (98-107) Carbon Dioxide Level 28 MMOL/L (21-32) 30 MMOL/L (21-32) Anion Gap 8 mmol/L (5-15) 6 mmol/L (5-15) Blood Urea Nitrogen 3 mg/dL (7-18) L 3 mg/dL (7-18) L Creatinine 0.7 MG/DL (0.55-1.30) 0.7 MG/DL (0.55-1.30) Estimat Glomerular Filtration Rate > 60 mL/min (>60) > 60 mL/min (>60) Glucose Level 138 MG/DL (74-106) H 101 MG/DL (74-106) Calcium Level 8.7 MG/DL (8.5-10.1) 8.8 MG/DL (8.5-10.1) Total Bilirubin 0.5 MG/DL (0.2-1.0) Aspartate Amino Transf (AST/SGOT) 32 U/L (15-37) Alanine Aminotransferase (ALT/SGPT) 22 U/L (12-78) Alkaline Phosphatase 68 U/L (46-116) Total Protein 7.7 G/DL (6.4-8.2) Albumin 3.1 G/DL (3.4-5.0) L Globulin 4.6 g/dL Albumin/Globulin Ratio 0.7 (1.0-2.7) L Plan Additional Comments GI consult ordered, continue bowel regimen. ambulate, DC fluids, advance diet. Álvaro Farmer MD Jun 19, 2020 11:01
--- NOTE | 2020-06-19 11:44 | NUR ---
CASE MANAGEMENT:REVIEW 06/19/20 SI: POST OP PAIN. MILD HYDRONEPHROSIS 97.7 106 19 138/75 99% ON RA H/H-9.9/33.2 IS: COLACE PO BID IV VENOFER QHS AUGMENTIN PO Q12 IV MORPHINE Q4HRS PRN PERCOCET PO Q4HRS PRN : MED/SURG STATUS DCP: FROM HOME PLAN: REGULAR DIET PAIN MGMT WILL DC HOME ONCE PAIN IS CONTROLLED AND BOWEL FUNCTION RETURNS
[2020-06-19 12:00] VITALS: BP 131/90
--- NOTE | 2020-06-19 14:16 | NUR ---
INSURANCE CLINICALS/REVIEW FAXED TO Morgan RAGSDALE ([facility]) FX [phone]
[2020-06-19] MEDS: Docusate 100mg cap ORAL SCH (17:29)
--- NOTE | 2020-06-19 19:23 | NUR ---
NURSE HAND-OFF: Important Events on Shift:[N] Patient Status: [S] Diet: [R] Pending Orders: [] Pending Results/Labs:[] Pending MD notification:[] Latest Vital Signs: Temperature 97.7 , Pulse 100 , B/P 131 /90 , Respiratory Rate 19 , O2 SAT 98 , Room Air, O2 Flow Rate . Vital Sign Comment: [] Latest Gilman Fall Score: 20 Fall Risk: Low Risk Safety Measures: Call light Within Reach, Bed Alarm , Side Rails Side Rails x2, Bed position Low and Locked. Fall Precautions: Yellow Socks Patient Fall Education Report given to [DAPHNIE Stern].
--- NOTE | 2020-06-19 19:41 | NUR ---
nurse's notes: received patient awake, alert and oriented x 4. admits to some abdominal pain. warm compress in use. abdomen still distended and firm to touch. per patient had 5 BMs during the day. plan of care discussed with patient who verbalized agreement and understanding.
[2020-06-19 20:00] VITALS: BP 103/64
[2020-06-19] MEDS: Iron Sucrose 100 MG in NS 55 ML IVPB SCH (20:22)
[2020-06-20] VITALS: BP 112/87
[2020-06-20] MEDS: oxyCODONE HCL/Acetaminophen 5/325mg ORAL PRN ×6 (01:32→21:26)
[2020-06-20 04:00] VITALS: BP 92/64
--- NOTE | 2020-06-20 06:18 | NUR ---
NURSE HAND-OFF: Important Events on Shift: none Patient Status: stable Diet: see chart Pending Orders: see chart Pending Results/Labs: see chart Pending MD notification: see chart Latest Vital Signs: Temperature 97.8 , Pulse 96 , B/P 92 /64 , Respiratory Rate 18 , O2 SAT 96 , Room Air, O2 Flow Rate . Vital Sign Comment: stable;afebrile Latest Gilman Fall Score: 35 Fall Risk: Medium Risk Safety Measures: Call light Within Reach, Bed Alarm , Side Rails Side Rails x2, Bed position Low and Locked. Fall Precautions: Yellow Socks Patient Fall Education Report will be given to DAPHNIE Santana .
--- NOTE | 2020-06-20 07:45 | NUR ---
NURSE NOTES: Received report from DAPHNIE Stern. patient awake, alert and oriented x 4. Breathing even and unlabored on RA. Pt c/o abd pain 5/10, will administer PRN pain med as ordered. IV intact and patent. Per pt had BM several time last night and felt better. Call light within reach. Will continue to monitor.
[2020-06-20 08:00] VITALS: BP 128/87
--- NOTE | 2020-06-20 08:54 | General Progress Note ---
Subjective ROS Limited/Unobtainable: No Allergies: Coded Allergies: No Known Allergies (Unverified , 06/17/20) Objective Last 24 Hour Vital Signs Date Time Temp Pulse Resp B/P (MAP) Pulse Ox O2 Delivery O2 Flow Rate FiO2 06/20/20 04:00 97.8 96 18 92/64 (73) 96 06/20/20 00:00 97.5 88 18 112/87 (95) 98 06/19/20 21:00 Room Air 06/19/20 20:00 97.5 114 19 103/64 (77) 98 06/19/20 12:00 97.7 100 19 131/90 (104) 98 Intake and Output 06/19/20 06/20/20 19:00 07:00 Intake Total 860 ml 440 ml Balance 860 ml 440 ml Intake Oral 860 ml 200 ml IV Total 240 ml # Voids 3 3 # Bowel Movements 3 Height (Feet): 5 Height (Inches): 9.00 Weight (Pounds): 155 General Appearance: no apparent distress EENT: normal ENT inspection Neck: supple Cardiovascular: normal rate Respiratory/Chest: decreased breath sounds Abdomen: normal bowel sounds, non tender, soft Extremities: non-tender Assessment/Plan Problem List: (1) Coagulopathy ICD Codes: D68.9 - Coagulation defect, unspecified SNOMED: 57627481 (2) Abdominal pain ICD Codes: R10.9 - Unspecified abdominal pain SNOMED: 42268541 (3) UTERINE ARTERY EMBOLIZATION (4) Status post embolization of uterine artery ICD Codes: Z98.890 - Other specified postprocedural states SNOMED: 315366419 Assessment/Plan: bowel regimen CT reviewed D/W SENIOR BUSINESS DEVELOPMENT ANALYST abd pain is much better will Cartre Cantrell MD Jun 20, 2020 08:54
[2020-06-20] MEDS ORDERED: Bisacodyl EC 5mg tab ORAL SCH (09:00)
[2020-06-20] MEDS: Lactulose 20gm/30ml UDC ORAL SCH ×3 (09:13→17:46)
[2020-06-20] MEDS: Docusate 100mg cap ORAL SCH ×2 (09:13→17:46)
[2020-06-20] MEDS: Augmentin 875mg Tab ORAL SCH ×2 (09:13→21:26)
[2020-06-20 09:39] LABS: BASOPHILS % (AUTO) 1.2 % (0.0-2.0); EOSINOPHILS % (AUTO) 0.5 % (0.0-3.0); HEMATOCRIT 35.4 % (37.0-47.0); HEMOGLOBIN 10.4 G/DL (12.0-16.0); LYMPHOCYTES % (AUTO) 6.3 % (20.0-45.0); MEAN CORPUSCULAR VOLUME 77 FL (80-99); MONOCYTES % (AUTO) 8.1 % (1.0-10.0); NEUTROPHILS % (AUTO) 83.9 % (45.0-75.0); PLATELET COUNT 319 K/UL (150-450); RED BLOOD COUNT 4.59 M/UL (4.20-5.40); RED CELL DISTRIBUTION WIDTH 13.1 % (11.6-14.8); WHITE BLOOD COUNT 8.2 K/UL (4.8-10.8)
[2020-06-20 09:56] LABS: ANION GAP 7 mmol/L (5-15); BLOOD UREA NITROGEN 6 mg/dL (7-18); CALCIUM 9.2 MG/DL (8.5-10.1); CARBON DIOXIDE 30 MMOL/L (21-32); CHLORIDE 100 MMOL/L (98-107); CREATININE 0.7 MG/DL (0.55-1.30); POTASSIUM 4.3 MMOL/L (3.5-5.1); SODIUM 137 MMOL/L (136-145)
[2020-06-20] MEDS ORDERED: traMADol 50mg tab ORAL PRN (10:15)
[2020-06-20 12:00] VITALS: BP 125/85
--- NOTE | 2020-06-20 13:00 | NUR ---
NURSE NOTES: Pt c/o no BM today after she took meds for BM and requested Citrate of Magnesium which worked for her last time she took. Received new order from Dr. Kumar to give Citrated of Magnesium once. Order carried out.
[2020-06-20] MEDS ORDERED: Magnesium Citrate Liq Btl ORAL SCH (14:00)
[2020-06-20] MEDS ORDERED: Sterile Water Irrig 1000ml IRRIG ONE (14:23)
--- NOTE | 2020-06-20 14:34 | Pulmonology Progress Note ---
Subjective ROS Limited/Unobtainable: No Interval Events: Seen by GI. Abdominal pain is improved Constitutional: Reports: no symptoms HEENT: Repors: no symptoms Respiratory: Reports: no symptoms Cardiovascular: Reports: no symptoms Gastrointestinal/Abdominal: Reports: bloating Genitourinary: Reports: other - Discomfort from fibroids Neurologic: Reports: no symptoms Psychiatric: Reports: no symptoms Skin: Reports: no symptoms Endocrine: Reports: no symptoms Hematologic: Reports: no symptoms Musculoskeletal: Reports: no symptoms Allergies: Coded Allergies: No Known Allergies (Unverified , 06/17/20) All Systems: reviewed and negative except above Objective Last 24 Hour Vital Signs Date Time Temp Pulse Resp B/P (MAP) Pulse Ox O2 Delivery O2 Flow Rate FiO2 06/20/20 12:00 98.0 98 18 125/85 (98) 98 06/20/20 10:18 97.5 06/20/20 09:00 Room Air 06/20/20 08:00 97.5 97 18 128/87 (101) 98 06/20/20 04:00 97.8 96 18 92/64 (73) 96 06/20/20 00:00 97.5 88 18 112/87 (95) 98 06/19/20 21:00 Room Air 06/19/20 20:00 97.5 114 19 103/64 (77) 98 Intake and Output 06/19/20 06/20/20 19:00 07:00 Intake Total 860 ml 440 ml Balance 860 ml 440 ml Intake Oral 860 ml 200 ml IV Total 240 ml # Voids 3 3 # Bowel Movements 3 General Appearance: WD/WN, no acute distress HEENT: normocephalic, atraumatic, anicteric, mucous membranes moist Respiratory: chest wall non-tender, lungs clear, normal breath sounds, no respiratory distress, no accessory muscle use Cardiovascular: normal peripheral pulses, normal rate, regular rhythm Abdomen: normal bowel sounds, soft, non tender, no organomegaly, non distended, other - distended abdomen with firm areas R lateral and lower abdomen at site of fibroids Extremities: no cyanosis, no clubbing, no edema Laboratory Tests 06/20/20 08:15: White Blood Count 8.2, Red Blood Count 4.59, Hemoglobin 10.4L, Hematocrit 35.4L, Mean Corpuscular Volume 77L, Mean Corpuscular Hemoglobin 22.6L, Mean Corpuscular Hemoglobin Concent 29.3L, Red Cell Distribution Width 13.1, Platelet Count 319, Mean Platelet Volume 8.3, Neutrophils (%) (Auto) 83.9H, Lymphocytes (%) (Auto) 6.3L, Monocytes (%) (Auto) 8.1, Eosinophils (%) (Auto) 0.5, Basophils (%) (Auto) 1.2, Sodium Level 137, Potassium Level 4.3, Chloride Level 100, Carbon Dioxide Level 30, Anion Gap 7, Blood Urea Nitrogen 6L, Creatinine 0.7, Estimat Glomerular Filtration Rate > 60, Glucose Level 107H, Calcium Level 9.2 Current Medications Medications (Trade) Dose Ordered Sig/Kye Route PRN Reason Start Time Stop Time Status Last Admin Dose Admin Amoxicillin/ Clavulanate Potassium (Augmentin) 875 mg EVERY 12 HOURS ORAL 06/17/20 21:00 06/24/20 20:59 06/20/20 09:13 Docusate Sodium (Colace) 100 mg TWICE A DAY ORAL 06/19/20 18:00 07/19/20 17:59 06/20/20 09:13 Ibuprofen (Motrin) 800 mg Q4HR PRN ORAL Mild Pain (Pain Scale 1-3) 06/20/20 10:15 07/20/20 10:14 Iron Sucrose 100 mg/Sodium Chloride 60 ml @ 240 mls/hr BEDTIME IVPB 06/17/20 21:00 06/21/20 21:14 06/19/20 20:22 Lactulose (Cephulac) 20 gm THREE TIMES A DAY ORAL 06/20/20 09:00 07/20/20 08:59 06/20/20 13:27 Magnesium Hydroxide (Mom) 30 ml Q12H PRN ORAL Constipation 06/17/20 16:30 07/17/20 16:29 Magnesium Citrate (Citrate Of Magnesia) 300 ml ONCE ORAL 06/20/20 14:00 06/20/20 16:00 06/20/20 13:51 Morphine Sulfate (Morphine Sulfate) 1 mg Q4H PRN IVP For breakthrough pain 06/17/20 16:30 06/24/20 16:29 06/18/20 00:08 Ondansetron HCl (Zofran) 4 mg Q6H PRN ORAL Nausea & Vomiting 06/17/20 15:30 07/17/20 15:29 06/18/20 11:08 Oxycodone/ Acetaminophen (Percocet 5-325) 1 tab Q4H PRN ORAL Severe Pain (Pain Scale 7-10) 06/17/20 15:30 06/24/20 15:29 06/20/20 13:27 Polyethylene Glycol (Miralax) 17 gm DAILY PRN ORAL Constipation 06/17/20 14:00 07/17/20 13:59 Tramadol HCl (Ultram) 50 mg Q4HR PRN ORAL Moderate Pain (Pain Scale 4-6) 06/20/20 10:15 06/24/20 15:29 Assessment/Plan Assessment/Plan ASSESSMENT/PROBLEM LIST: * UF S/P UFE 06/15/20 (Dr. Farmer) * Post-operative pain * Constipation * Anemia * Mild hydronephrosis 2/2 compression from fibroids PLAN: * Pain control/supportive care * Bowel regimen * GI consult appreciated * IS * OOB * Denise-operative Abx * mIVF * Advance diet per VICE PRESIDENT * DVT Px: SCD's * VICE PRESIDENT recs * Dispo planning: home once pain adequately controlled and bowel function returned * Ian Ardon MD Jun 20, 2020 14:34
[2020-06-20 16:00] VITALS: BP 121/81
--- NOTE | 2020-06-20 19:14 | NUR ---
NURSE HAND-OFF: Important Events on Shift:[Pt had BMx2, relieved discomfort. Pain is controlled with percocet.] Patient Status: [stable] Diet: [reg] Pending Orders: [] Pending Results/Labs:[] Pending MD notification:[] Latest Vital Signs: Temperature 97.5 , Pulse 101 , B/P 121 /81 , Respiratory Rate 18 , O2 SAT 98 , Room Air, O2 Flow Rate . Vital Sign Comment: [stable] Latest Gilman Fall Score: 35 Fall Risk: Medium Risk Safety Measures: Call light Within Reach, Bed Alarm , Side Rails Side Rails x2, Bed position Low and Locked. Fall Precautions: Yellow Socks Patient Fall Education Report given to [DAPHNIE Stern].
[2020-06-20 19:50] VITALS: BP 130/84
--- NOTE | 2020-06-20 19:51 | NUR ---
nurse's notes: received patient in better spirits than previous nights; still admits to 5/10 pain; abdomen still distended; on bowel regimen; per patient mag citrate works best for her constipation; had several BMs today; plan of care discussed with patient who verbalized agreement and understanding; plan to be discharged tomorrow back home; will continue to monitor.
[2020-06-20] MEDS: Iron Sucrose 100 MG in NS 55 ML IVPB SCH (21:27)
[2020-06-21] VITALS: BP 105/68
[2020-06-21] MEDS: oxyCODONE HCL/Acetaminophen 5/325mg ORAL PRN ×4 (01:28→05:47)
[2020-06-21 06:17] VITALS: BP 114/81
--- NOTE | 2020-06-21 06:20 | NUR ---
nurse's notes: NURSE HAND-OFF: Important Events on Shift: pain managed well with oral medication as ordered. patient requested twice this shift for prn laxatives; MOM and miralax given. VSS; afebrile. per patient will go home today. Patient Status: stable Diet: regular Pending Orders: see chart Pending Results/Labs: see chart Pending MD notification: see chart Latest Vital Signs: Temperature 97.9 , Pulse 95 , B/P 114 /81 , Respiratory Rate 20 , O2 SAT 98 , Room Air, O2 Flow Rate . Vital Sign Comment: see above/see chart Latest Gilman Fall Score: 35 Fall Risk: Medium Risk Safety Measures: Call light Within Reach, Bed Alarm , Side Rails Side Rails x2, Bed position Low and Locked. Fall Precautions: Yellow Socks Patient Fall Education Report will be given to DAPHNIE Awan.
--- NOTE | 2020-06-21 07:03 | General Progress Note ---
Subjective ROS Limited/Unobtainable: No Allergies: Coded Allergies: No Known Allergies (Unverified , 06/17/20) Objective Last 24 Hour Vital Signs Date Time Temp Pulse Resp B/P (MAP) Pulse Ox O2 Delivery O2 Flow Rate FiO2 06/21/20 06:17 97.9 95 20 114/81 (92) 98 06/21/20 00:00 97.8 89 18 105/68 (80) 97 06/20/20 21:00 Room Air 06/20/20 19:50 98.5 101 18 130/84 (99) 97 06/20/20 18:16 97.5 06/20/20 16:00 97.5 101 18 121/81 (94) 98 06/20/20 13:57 97.5 06/20/20 12:00 98.0 98 18 125/85 (98) 98 06/20/20 10:18 97.5 06/20/20 09:00 Room Air 06/20/20 08:00 97.5 97 18 128/87 (101) 98 Intake and Output 06/20/20 06/21/20 19:00 07:00 Intake Total 1080 ml 740 ml Balance 1080 ml 740 ml Intake Oral 1080 ml 500 ml IV Total 240 ml # Voids 2 3 # Bowel Movements 1 2 Laboratory Tests 06/20/20 08:15: White Blood Count 8.2, Red Blood Count 4.59, Hemoglobin 10.4L, Hematocrit 35.4L, Mean Corpuscular Volume 77L, Mean Corpuscular Hemoglobin 22.6L, Mean Corpuscular Hemoglobin Concent 29.3L, Red Cell Distribution Width 13.1, Platelet Count 319, Mean Platelet Volume 8.3, Neutrophils (%) (Auto) 83.9H, Lymphocytes (%) (Auto) 6.3L, Monocytes (%) (Auto) 8.1, Eosinophils (%) (Auto) 0.5, Basophils (%) (Auto) 1.2, Sodium Level 137, Potassium Level 4.3, Chloride Level 100, Carbon Dioxide Level 30, Anion Gap 7, Blood Urea Nitrogen 6L, Creatinine 0.7, Estimat Glomerular Filtration Rate > 60, Glucose Level 107H, Calcium Level 9.2 06/21/20 05:35: White Blood Count [Pending], Red Blood Count [Pending], Hemoglobin [Pending], Hematocrit [Pending], Mean Corpuscular Volume [Pending], Mean Corpuscular Hemog lobin [Pending], Mean Corpuscular Hemoglobin Concent [Pending], Red Cell Distribution Width [Pending], Platelet Count [Pending], Mean Platelet Volume [Pending], Neutrophils (%) (Auto) [Pending], Lymphocytes (%) (Auto) [Pending], Monocytes (%) (Auto) [Pending], Eosinophils (%) (Auto) [Pending], Basophils (%) (Auto) [Pending], Sodium Level [Pending], Potassium Level [Pending], Chloride Level [Pending], Carbon Dioxide Level [Pending], Blood Urea Nitrogen [Pending], Creatinine [Pending], Estimat Glomerular Filtration Rate [Pending], Glucose Level [Pending], Calcium Level [Pending] Height (Feet): 5 Height (Inches): 9.00 Weight (Pounds): 155 General Appearance: no apparent distress EENT: normal ENT inspection Neck: supple Cardiovascular: normal rate Respiratory/Chest: decreased breath sounds Abdomen: normal bowel sounds, non tender, soft Extremities: non-tender Assessment/Plan Problem List: (1) Coagulopathy ICD Codes: D68.9 - Coagulation defect, unspecified SNOMED: 40171621 (2) Abdominal pain ICD Codes: R10.9 - Unspecified abdominal pain SNOMED: 27789816 (3) UTERINE ARTERY EMBOLIZATION (4) Status post embolization of uterine artery ICD Codes: Z98.890 - Other specified postprocedural states SNOMED: 521859336 Assessment/Plan: bowel regimen CT reviewed D/W CAPTAIN/AIRLINE PILOT abd pain is much better will Carter Cantrell MD Jun 21, 2020 07:03
[2020-06-21 07:21] LABS: ANION GAP 6 mmol/L (5-15); BLOOD UREA NITROGEN 6 mg/dL (7-18); CALCIUM 9.1 MG/DL (8.5-10.1); CARBON DIOXIDE 31 MMOL/L (21-32); CHLORIDE 101 MMOL/L (98-107); CREATININE 0.8 MG/DL (0.55-1.30); POTASSIUM 3.9 MMOL/L (3.5-5.1); SODIUM 138 MMOL/L (136-145)
[2020-06-21 07:23] LABS: BASOPHILS % (AUTO) 0.9 % (0.0-2.0); EOSINOPHILS % (AUTO) 0.8 % (0.0-3.0); HEMATOCRIT 33.2 % (37.0-47.0); HEMOGLOBIN 9.6 G/DL (12.0-16.0); LYMPHOCYTES % (AUTO) 11.5 % (20.0-45.0); MEAN CORPUSCULAR VOLUME 76 FL (80-99); MONOCYTES % (AUTO) 13.6 % (1.0-10.0); NEUTROPHILS % (AUTO) 73.2 % (45.0-75.0); PLATELET COUNT 297 K/UL (150-450); RED BLOOD COUNT 4.35 M/UL (4.20-5.40); WHITE BLOOD COUNT 4.3 K/UL (4.8-10.8)
[2020-06-21 08:00] VITALS: BP 115/81
--- NOTE | 2020-06-21 08:00 | NUR ---
NURSE NOTES: Pt lying in bed w/bed in lowest position and call light within reach. Pt A&Ox4, VSS, and in no apparent distress. IV site intact/asymptomatic & H/L'd and skin intact. Pt scheduled to be D/C'd this morning. Will continue to monitor.
--- NOTE | 2020-06-21 08:35 | Discharge Summary ---
Discharge Summary Discharge Summary _ DATE OF ADMISSION: 06/17/19 ESTEBAN OF DISCHARGE: 06/21/19 HPI: 40F h/o UF admitted POD2 S/P UFE with abd pain (BLQ crampy) + N no V no FC no CP no SOB. HOSTPIAL COURSE: Patient was admitted for pain control and bowel regimen. On the day of discharge she was AFVSS on RA, sebas PO, pain controlled, having BM and ambulating. [facility] AD[facility] DIAGNOSES: * UF S/P UFE 06/15/20 (Dr. Farmer) * Post-operative pain * Constipation * Anemia * Mild hydronephrosis 2/2 compression from fibroids DISCHARGE DIAGNOSES: * UF S/P UFE 06/15/20 (Dr. Farmer) * Post-operative pain * Constipation * Anemia * Mild hydronephrosis 2/2 compression from fibroids * CONSULTANTS: Álvaro Farmer MD - [employer]ES [employer]ENT[employer] Carter Johnson MD - GI PROCEDURES: none DIET: Regular MEDS: Active Scripts Medications Dose Route/Sig Max Daily Dose Days Date Category Augmentin 875-125 Tablet* (Amoxicillin/Clavulanate Potassium) 1 Each Tablet 1 Tab ORAL TWICE A DAY 06/17/20 Reported Percocet 5-325 Mg Tablet* (Oxycodone/Acetaminophen) 1 Each Tablet 1 Tab ORAL Q4H PRN 06/17/20 Reported Zofran* (Ondansetron HCl) 4 Mg Tablet 4 Mg ORAL Q6H PRN 06/17/20 Reported Ultram* (Tramadol HCl) 50 Mg Tablet 50 Mg ORAL Q4HR PRN 06/17/20 Reported Miralax* (Polyethylene Glycol) 17 Gm Powd.pack 17 Gm ORAL DAILY 06/17/20 Reported FOLLOW UP: With Dr. Farmer as directed RETURN PRECAUTIONS: Given ACTIVITY: As sebas 45 min Nathaniel Pena MD Jun 21, 2020 08:35
[2020-06-21] MEDS: Augmentin 875mg Tab ORAL SCH (10:18)
[2020-06-21] MEDS: Lactulose 20gm/30ml UDC ORAL SCH (10:19)
[2020-06-21] MEDS: Docusate 100mg cap ORAL SCH (10:19)
--- NOTE | 2020-06-21 10:45 | NUR ---
NURSE NOTES: Pt D/C'd home in stable condition and w/all belongings accounted for. Escorted pt downstairs to friend's vehicle.
== END 2020-06-21 10:50 | disposition home or self-care (01) | DRG 948 ==
LOC: EMR 10:35 → 4E 11:16 → EDBEDREQ 11:37
DX: G89.18 Other acute postprocedural pain (principal); D68.9 Coagulation defect, unspecified; N13.39 Other hydronephrosis; K59.00 Constipation, unspecified; D64.9 Anemia, unspecified; Z98.890 Other specified postprocedural states
CPT/HCPCS: 36415; 74177; 80048; 80053; 81003; 83690; 85007; 85025; 85610; 85730; 96361; 96374; 99285; J7030